=== PATIENT | female | born 1990 | race Hispanic/Latino ===

== ENCOUNTER 2016-11-26 16:12 | Emergency (ER) | payer OTHER, SELFPAY ==
[2016-11-26] MEDS ORDERED: predniSONE 20 MG TAB ONE (16:39)
[2016-11-26] MEDS ORDERED: Azithromycin 250 MG TAB ONE (16:39)
== END 2016-11-26 16:45 | disposition home or self-care (01) ==
LOC: NAV ERS 16:12
DX: J20.9 Acute bronchitis, unspecified (principal); J45.909 Unspecified asthma, uncomplicated
CPT/HCPCS: 99283; J7506

== ENCOUNTER 2017-09-06 20:42 | Emergency (ER) | payer SELFPAY ==
[2017-09-06] MEDS ORDERED: Sodium Chloride 0.9% 1,000 ML ONE (21:20)
[2017-09-06] MEDS ORDERED: diphenhydrAMINE 50 MG/ML VIAL ONE (21:20)
[2017-09-06] MEDS ORDERED: Ketorolac Tromethamine 30 MG/ML VIAL ONE (21:20)
[2017-09-06] MEDS ORDERED: Promethazine HCl 25 MG/ML VIAL ONE (21:20)
== END 2017-09-06 22:15 | disposition home or self-care (01) ==
LOC: NAV ERS 20:42
DX: R51 Headache (principal); J45.909 Unspecified asthma, uncomplicated; Z79.899 Other long term (current) drug therapy
CPT/HCPCS: 96361; 96374; 96375; J1200; J1885; J2550; J7050

== ENCOUNTER 2017-10-31 19:04 | Emergency (ER) | payer SELFPAY ==
[2017-10-31] MEDS ORDERED: predniSONE 20 MG TAB ONE (19:27)
== END 2017-10-31 19:38 | disposition home or self-care (01) ==
LOC: NAV ERS 19:04
DX: J45.909 Unspecified asthma, uncomplicated (principal); Z79.899 Other long term (current) drug therapy
CPT/HCPCS: 94640; J7506; J7620

== ENCOUNTER 2018-10-21 19:45 | Emergency (ER) | payer SELFPAY ==
--- NOTE | 2018-10-21 20:30 | RAD ---
RADIOGRAPH CHEST 2 VIEWS: DATE: 10/21/2018 HISTORY: 28-year-old female with cough FINDINGS: On the lateral projection, there is an approximately 3.5 x 1 cm focal hyperdensity overlapping the po sterior base of the lower lobes and overlapping the posterior aspect of one of the lower thoracic vertebral bodies and adjacent pedicle. Lungs are clear on the frontal view. The cardiomediastinal holger houette and hilar shadows appear normal. There is no pleural effusion or pneumothorax. No other potential osseous abnormality is identified. IMPRESSION: 1. Small focal opacity overlying posterior basilar portion of a lower lobe on the lateral view. Uncer tain whether this is an osseous lesion involving one of the lower thoracic vertebral bodies and adjacent pedicle, or small focal infiltrate, or artifact. It does not appear typical for an infiltrat e. Recommend follow-up two-view chest radiograph in one to 2 weeks. 2. No other abnormality identified.
--- NOTE | 2018-10-21 20:50 | RAD ---
Radiograph neck soft tissues 2 views: HISTORY: 28-year-old female with cough FINDINGS: No prevertebral, epiglottic, or any supraglottic soft tissue swelling. Trachea appears normal on fron zheng projection. IMPRESSION: Negative
[2018-10-21] MEDS ORDERED: Ondansetron PF 4 MG/2 ML Vial ONE (20:55)
[2018-10-21] MEDS ORDERED: Albuterol Sulfate 2.5 mg/3 ml Neb ONE (20:55)
[2018-10-21 20:57] LABS: #Basophils 0.1 thou/uL (0.0-0.2); #Eosinphils 1.3 thou/uL (0.0-0.7); #Monocytes 0.6 thou/uL (0.11-0.59); #Neutrophils 6.3 thou/uL (1.40-6.50); %Basophils 1.2 % (0.0-1.0); %Eosinophils 11.4 % (0.0-10.0); %Lymphocytes 26.3 % (21.0-51.0); %Monocytes 5.2 % (0.0-10.0); %Neutrophils 55.8 % (42.0-75.0); Hemoglobin 14.1 g/dL (12.0-16.0); Mean Corpuscular HGB CONC 34.4 g/dL (32.0-36.0); Mean Corpuscular Hemoglobin 29.4 pg (27.0-31.0); Mean Corpuscular Volume 85.2 fL (78.0-98.0); Mean Platelet Volume 8.5 fL (7.4-10.4); Platelet Count 286 thou/uL (130-400); RBC Distribution Width 11.2 % (11.5-14.5); Red Blood Cell (RBC) Count 4.79 mill/uL (4.20-5.40); White Blood Cell (WBC) Count 11.3 thou/uL (4.8-10.8)
[2018-10-21 21:06] LABS: BHCG - Serum Negative (NEGATIVE); Pregs Control Bar Appear? YES (CONTROL BAR)
[2018-10-21] MEDS ORDERED: methylPREDNISolone Sod Succ/PF 125 MG/2 ML VIAL ONE (21:09)
[2018-10-21] MEDS ORDERED: Sodium Chloride 0.9% 100 ML ONE (21:09)
[2018-10-21] MEDS ORDERED: cefTRIAXone\\ROCEPHIN 2 GM VIAL ONE (21:09)
[2018-10-21 21:15] LABS: ALT (SGPT) 21 U/L (8-55); AST (SGOT) 23 U/L (5-34); Albumin 4.5 g/dL (3.5-5.0); Alkaline Phosphatase 84 U/L (40-150); Anion Gap 15 mmol/L (10-20); BUN (Urea Nitrogen) 12 mg/dL (7.0-18.7); Bilirubin, Total 0.4 mg/dL (0.2-1.2); Calc. Creatinine Clearance 0 mL/min (70-130); Calcium 9.9 mg/dL (7.8-10.44); Carbon Dioxide 22 mmol/L (22-29); Chloride 107 mmol/L (98-107); Estimated GFR-MDRD Greater than 90; Globulin 2.9 g/dL (2.4-3.5); Glucose 101 mg/dL (70-105); Potassium 3.8 mmol/L (3.5-5.1); Protein, Total 7.4 g/dL (6.0-8.3); Sodium 140 mmol/L (136-145)
== END 2018-10-21 21:45 | disposition short-term general hospital (02) ==
LOC: NAV ERS 19:45
DX: J02.9 Acute pharyngitis, unspecified (principal); R06.1 Stridor; J45.909 Unspecified asthma, uncomplicated; Z79.51 Long term (current) use of inhaled steroids
CPT/HCPCS: 70360; 71046; 80053; 83605; 84703; 85025; 87040; 94760; 96365; 96375; J0696; J2405; J2930; J3490; J7611

== ENCOUNTER 2019-10-04 22:49 | Emergency (ER) | payer MEDICAID, SELFPAY ==
[2019-10-04 23:56] LABS: Bilirubin Negative (Negative); Blood, Urine Small (Negative); Clarity Clear (Clear); Glucose, Urine (Dipstick) Negative (Negative); Ketone, Urine Negative (Negative); Leukocyte Negative (Negative); Nitrite Negative (Negative); Pregnancy Test - Urine (BHCG) Negative (Negative); Pregu Control Background? CLEAR/WHITE (CLR/WHITE); Pregu Control Bar Appear? YES (CONTROL BAR); Protein, Urine (Dipstick) Negative (Neg-Trace); Specific Gravity 1.029 (1.002-1.036); pH, Urine 5.5 (5.0-9.0)
[2019-10-04 23:57] LABS: Specific Gravity, Urine 1.029 (1.002-1.036)
[2019-10-05 00:03] LABS: Bacteria/HPF None Seen HPF (None Seen); RBC/HPF 0-3 HPF (0-3); Squamous Epithelial 0-3 HPF (0-3); WBC/HPF None Seen HPF (0-3)
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
== END 2019-10-05 00:28 | disposition home or self-care (01) ==
LOC: NAV ERS 22:49
DX: S83.91XA Sprain of unspecified site of right knee, initial encounter (principal); S39.012A Strain of muscle, fascia and tendon of lower back, initial encounter; J45.909 Unspecified asthma, uncomplicated; Z79.51 Long term (current) use of inhaled steroids; V43.62XA Car passenger injured in collision with other type car in traffic accident, initial encounter
CPT/HCPCS: 72131; 81003; 81015; 81025

== ENCOUNTER 2020-01-04 20:59 | Emergency (ER) | payer MEDICAID ==
[2020-01-04] MEDS ORDERED: Ventolin HFA Inhaler 60 PUFF INHALER ONE (21:56)
[2020-01-04] MEDS ORDERED: Sodium Chloride 0.9% 1,000 ML ONE (21:57)
[2020-01-04] MEDS ORDERED: predniSONE 20 MG TAB ONE (21:57)
[2020-01-04] MEDS ORDERED: Metoclopramide HCl 10 MG/2 ML VIAL ONE (21:57)
[2020-01-04 22:02] LABS: #Basophils 0.1 thou/uL (0.0-0.2); #Lymphocytes 2.4 thou/uL (1.20-3.40); #Monocytes 0.5 thou/uL (0.11-0.59); #Neutrophils 7.7 thou/uL (1.40-6.50); %Basophils 0.9 % (0.0-1.0); %Eosinophils 8.5 % (0.0-10.0); %Lymphocytes 20.7 % (21.0-51.0); %Monocytes 4.1 % (0.0-10.0); %Neutrophils 65.8 % (42.0-75.0); Hemoglobin 12.2 g/dL (12.0-16.0); Mean Corpuscular HGB CONC 34.6 g/dL (32.0-36.0); Mean Corpuscular Hemoglobin 30.7 pg (27.0-31.0); Mean Corpuscular Volume 88.7 fL (78.0-98.0); Mean Platelet Volume 8.1 fL (7.4-10.4); Platelet Count 229 thou/uL (130-400); RBC Distribution Width 11.2 % (11.5-14.5); Red Blood Cell (RBC) Count 3.98 mill/uL (4.20-5.40); White Blood Cell (WBC) Count 11.7 thou/uL (4.8-10.8)
[2020-01-04 22:03] LABS: Bilirubin Negative (Negative); Blood, Urine Small (Negative); Clarity Clear (Clear); Glucose, Urine (Dipstick) Negative (Negative); Ketone, Urine Negative (Negative); Leukocyte Negative (Negative); Nitrite Negative (Negative); Protein, Urine (Dipstick) Negative (Neg-Trace); Urobilinogen 0.2 mg/dL (Less than 2); pH, Urine 5.5 (5.0-9.0)
[2020-01-04 22:06] LABS: Specific Gravity, Urine 1.027 (1.005-1.030)
[2020-01-04 22:11] LABS: RBC/HPF 0-3 HPF (0-3)
[2020-01-04 22:19] LABS: ALT (SGPT) 12 U/L (8-55); AST (SGOT) 19 U/L (5-34); Albumin 3.9 g/dL (3.5-5.0); Alkaline Phosphatase 58 U/L (40-110); Anion Gap 14 mmol/L (10-20); BUN (Urea Nitrogen) 8 mg/dL (7.0-18.7); Bilirubin, Total 0.2 mg/dL (0.2-1.2); Calc. Creatinine Clearance 0 mL/min (70-130); Calcium 8.8 mg/dL (7.8-10.44); Carbon Dioxide 21 mmol/L (22-29); Chloride 108 mmol/L (98-107); Estimated GFR-MDRD Greater than 90; Glucose 88 mg/dL (70-105); Lipase 56 U/L (8-78); Potassium 3.8 mmol/L (3.5-5.1); Protein, Total 6.9 g/dL (6.0-8.3); Sodium 139 mmol/L (136-145)
== END 2020-01-04 23:05 | disposition home or self-care (01) ==
LOC: NAV ERS 20:59
DX: O21.0 Mild hyperemesis gravidarum (principal); O99.512 Diseases of the respiratory system complicating pregnancy, second trimester; J45.901 Unspecified asthma with (acute) exacerbation; Z3A.14 14 weeks gestation of pregnancy
CPT/HCPCS: 80053; 81003; 81015; 83605; 83690; 85025; 94640; 96365; J2765; J7050; J7512

== ENCOUNTER 2020-11-19 17:07 | Emergency (ER) | payer MEDICAID ==
[2020-11-19] MEDS ORDERED: Acetaminophen 500 MG TAB ONE (17:19)
[2020-11-19] MEDS ORDERED: Albuterol Sulfate 2.5 mg/0.5 ml Neb ONE (17:55)
[2020-11-19] MEDS ORDERED: methylPREDNISolone Sod Succ/PF 125 MG/2 ML VIAL ONE (17:56)
[2020-11-19] MEDS ORDERED: Ventolin HFA Inhaler 60 PUFF INHALER ONE (17:57)
[2020-11-19 18:21] LABS: #Lymphocytes 0.7 thou/uL (1.20-3.40); #Monocytes 0.2 thou/uL (0.11-0.59); %Basophils 0.5 % (0.0-1.0); %Eosinophils 0.7 % (0.0-10.0); %Lymphocytes 18.3 % (21.0-51.0); %Monocytes 5.2 % (0.0-10.0); %Neutrophils 75.3 % (42.0-75.0); Hemoglobin 12.4 g/dL (12.0-16.0); Mean Corpuscular HGB CONC 33.4 g/dL (32.0-36.0); Mean Corpuscular Hemoglobin 28.6 pg (27.0-31.0); Mean Corpuscular Volume 85.5 fL (78.0-98.0); Mean Platelet Volume 7.8 fL (7.4-10.4); Platelet Count 205 thou/uL (130-400); RBC Distribution Width 12.4 % (11.5-14.5); Red Blood Cell (RBC) Count 4.33 mill/uL (4.20-5.40); White Blood Cell (WBC) Count 3.9 thou/uL (4.8-10.8)
[2020-11-19 18:23] LABS: ALT (SGPT) 157 U/L (8-55); AST (SGOT) 125 U/L (5-34); Albumin 3.8 g/dL (3.5-5.0); Alkaline Phosphatase 169 U/L (40-110); Anion Gap 13 mmol/L (10-20); BUN (Urea Nitrogen) 9 mg/dL (7.0-18.7); Bilirubin, Total 0.7 mg/dL (0.2-1.2); Calc. Creatinine Clearance 0 mL/min (70-130); Calcium 8.7 mg/dL (7.8-10.44); Carbon Dioxide 21 mmol/L (22-29); Chloride 107 mmol/L (98-107); Globulin 3.1 g/dL (2.4-3.5); Glucose 113 mg/dL (70-105); Potassium 3.9 mmol/L (3.5-5.1); Protein, Total 6.9 g/dL (6.0-8.3); Sodium 137 mmol/L (136-145)
[2020-11-19] MEDS ORDERED: Sodium Chloride 0.9% 1,000 ML ONE ×2 (18:38→20:11)
[2020-11-19] MEDS ORDERED: Metoclopramide HCl 10 MG/2 ML VIAL ONE (20:11)
[2020-11-19] MEDS ORDERED: Sodium Chloride 0.9% 100 ML ONE (20:11)
[2020-11-19] MEDS ORDERED: diphenhydrAMINE 50 MG/ML VIAL ONE (20:11)
[2020-11-20 15:26] LABS: SARS-CoV-2 PCR by NAA Not Detected (NotDetected)
== END 2020-11-19 22:00 | disposition home or self-care (01) ==
LOC: NAV ERS 17:07
DX: J45.909 Unspecified asthma, uncomplicated (principal); E86.0 Dehydration; R51.9 Headache, unspecified; Z20.822 Contact with and (suspected) exposure to COVID-19
CPT/HCPCS: 71045; 80053; 83605; 85025; 96365; 96375; J1200; J2765; J2930; J7050; J7611; U0003; U0005

== ENCOUNTER 2020-11-22 14:47 | Emergency (ER) | payer MEDICAID ==
[2020-11-22 15:14] LABS: #Lymphocytes 0.7 thou/uL (1.20-3.40); #Monocytes 0.3 thou/uL (0.11-0.59); #Neutrophils 4.7 thou/uL (1.40-6.50); %Basophils 0.4 % (0.0-1.0); %Eosinophils 0.1 % (0.0-10.0); %Lymphocytes 12.4 % (21.0-51.0); %Neutrophils 82.2 % (42.0-75.0); Hemoglobin 10.5 g/dL (12.0-16.0); Mean Corpuscular HGB CONC 33.8 g/dL (32.0-36.0); Mean Corpuscular Hemoglobin 28.1 pg (27.0-31.0); Mean Corpuscular Volume 83.2 fL (78.0-98.0); Mean Platelet Volume 8.5 fL (7.4-10.4); Platelet Count 154 thou/uL (130-400); RBC Distribution Width 12.2 % (11.5-14.5); Red Blood Cell (RBC) Count 3.74 mill/uL (4.20-5.40); White Blood Cell (WBC) Count 5.8 thou/uL (4.8-10.8)
[2020-11-22 15:32] LABS: ALT (SGPT) 137 U/L (8-55); AST (SGOT) 126 U/L (5-34); Albumin 3.1 g/dL (3.5-5.0); Alkaline Phosphatase 173 U/L (40-110); Anion Gap 11 mmol/L (10-20); BUN (Urea Nitrogen) 8 mg/dL (7.0-18.7); Bilirubin, Total 1.1 mg/dL (0.2-1.2); Calc. Creatinine Clearance 0 mL/min (70-130); Calcium 7.8 mg/dL (7.8-10.44); Carbon Dioxide 20 mmol/L (22-29); Chloride 104 mmol/L (98-107); Globulin 2.7 g/dL (2.4-3.5); Glucose 97 mg/dL (70-105); Potassium 3.3 mmol/L (3.5-5.1); Protein, Total 5.8 g/dL (6.0-8.3); Sodium 132 mmol/L (136-145)
[2020-11-22] MEDS ORDERED: Metoclopramide HCl 10 MG/2 ML VIAL ONE (15:32)
[2020-11-22] MEDS ORDERED: diphenhydrAMINE 50 MG/ML VIAL ONE (15:32)
[2020-11-22] MEDS ORDERED: Sodium Chloride 0.9% 1,000 ML ONE (15:32)
[2020-11-22] MEDS ORDERED: Ondansetron PF 4 MG/2 ML Vial ONE (15:32)
[2020-11-22] MEDS ORDERED: Potassium Chloride 20 MEQ TAB ONE (16:04)
[2020-11-22 16:06] LABS: Bilirubin Moderate (Negative); Blood, Urine Trace (Negative); Clarity Slightly Cloudy (Clear); Glucose, Urine (Dipstick) Negative (Negative); Ketone, Urine Trace mg/dL (Negative); Leukocyte Negative (Negative); Nitrite Negative (Negative); Protein, Urine (Dipstick) > or equal to 300 mg/dL (Neg-Trace); Urobilinogen > or = 8.0 mg/dL (Less than 2); pH, Urine 6.5 (5.0-9.0)
[2020-11-22 16:09] LABS: Specific Gravity, Urine 1.026 (1.002-1.036)
[2020-11-22 16:15] LABS: Bacteria/HPF Rare-Few HPF (None Seen); Mucous/LPF 1+ LPF (<2+); RBC/HPF 0-3 HPF (0-3); Squamous Epithelial 0-3 HPF (0-3); WBC/HPF 0-3 HPF (0-3)
[2020-11-22] MEDS ORDERED: Ondansetron PF 4 MG/2 ML Vial IVP SCH (17:00)
[2020-11-22] MEDS ORDERED: diphenhydrAMINE 50 MG/ML VIAL IVP SCH (17:00)
[2020-11-22] MEDS ORDERED: Sodium Chloride 0.9% 1,000 ML IV SCH ×2 (17:00→18:00)
[2020-11-22] MEDS ORDERED: Metoclopramide HCl 10 MG/2 ML VIAL IVP SCH (17:00)
== END 2020-11-22 17:05 | disposition home or self-care (01) ==
LOC: NAV ERS 14:47
DX: B27.90 Infectious mononucleosis, unspecified without complication (principal); E86.0 Dehydration; R79.89 Other specified abnormal findings of blood chemistry; G43.909 Migraine, unspecified, not intractable, without status migrainosus; J45.909 Unspecified asthma, uncomplicated
CPT/HCPCS: 36415; 80053; 81003; 81015; 83605; 84484; 85025; 93005; 94760; 96374; 96375; J1200; J2405; J2765; J7050